=== PATIENT | male | born 1955 | race Caucasian/White ===

== ENCOUNTER → 2017-02-05 | Day surgery (SDC) | payer OTHER ==
[~2017-02-05] MED LIST: ALDACTONE25 M1 PO; CERTAGEN1 EACH PO; FOLIC ACID1 MG PO; INDERAL20 MG PO; THIAMINE HCL50 MG PO
[2017-02-05 11:32] LABS: CREATININE 0.6 mg/dL (0.7-1.2); POTASSIUM 4.1 mmol/L (3.5-5.1)
== END | disposition home or self-care (01) ==
LOC: FAS 10:50
PROVIDERS: Anesthesiology
DX: K29.50 Unspecified chronic gastritis without bleeding (principal); I85.00 Esophageal varices without bleeding; K76.6 Portal hypertension; K31.89 Other diseases of stomach and duodenum; K74.60 Unspecified cirrhosis of liver; Z87.891 Personal history of nicotine dependence; Z98.890 Other specified postprocedural states; Z79.899 Other long term (current) drug therapy
CPT/HCPCS: 36415; 80048; 85730; 88305; 88312; J2704